=== PATIENT | female | born 1975 | race Hispanic/Latino ===

== ENCOUNTER 2022-04-28 19:21 | Emergency (ER) | payer OTHER ==
[~2022-04-28] VITALS: Ht 157.5 cm; Wt 138.3 kg
[2022-04-28 19:45] LABS: BASOPHILS % (AUTO) 0.1 % (0.0-5.0); EOSINOPHILS % (AUTO) 3.1 % (0.0-8.0); HEMATOCRIT 36.2 % (36-48); LYMPHOCYTES % (AUTO) 28.3 % (21.0-51.0); MEAN CORPUSCULAR HEMOGLOBIN 27.6 pg (27.0-33.0); MEAN CORPUSCULAR HGB CONC 33.1 g/dL (32.0-36.0); MEAN CORPUSCULAR VOLUME 83.2 fL (79-99); MONOCYTES % (AUTO) 6.6 % (3.0-13.0); NEUTROPHILS % (AUTO) 61.8 % (40.0-77.0); PLATELET COUNT (AUTO) 217 K/uL (130-400); RED BLOOD CELL COUNT(AUTO) 4.35 MIL/uL (4.00-5.50); RED CELL DISTRIBUTION WIDTH 12.7 % (11.0-15.5)
[2022-04-28 19:54] LABS: CREATININE 0.9 mg/dL (0.5-1.5); POTASSIUM 3.6 mmol/L (3.5-5.1)
[2022-04-28 19:59] LABS: APPEARANCE,URINE CLOUDY (CLEAR); BILIRUBIN,URINE NEGATIVE (NEGATIVE); COLOR,URINE LIGHT-ORANGE (YELLOW); GLUCOSE, URINE (UA) NEGATIVE (NEGATIVE); KETONES,URINE NEGATIVE (NEGATIVE); LEUKOCYTE ESTERASE ,URINE 500 Leu/uL (NEGATIVE); NITRATE,URINE NEGATIVE (NEGATIVE); OCCULT BLOOD,URINE LARGE (NEGATIVE); PH,URINE 5.5 (5.0-8.0); PROTEIN,URINE 30 mg/dL (NEGATIVE); UROBILINOGEN,URINE 0.2 mg/dL (0.2-1.0)
[2022-04-28 20:03] LABS: ALBUMIN 3.3 g/dL (3.5-5.0); TOTAL PROTEIN, SERUM 6.6 g/dL (6.0-8.3)
[2022-04-28 20:08] LABS: MUCUS,URINE RARE LPF (None Seen); RBC,URINE TNTC /HPF (0-1); SQUAMOUS EPITHELIAL CELL,UR FEW /HPF (0-2); WBC,URINE TNTC /HPF (0-1)
[2022-04-28] MEDS ORDERED: CEFTRIAXONE 1G VIAL IVP ONE (22:00)
[2022-04-28] MEDS ORDERED: KETOROLAC 15MG/ML VIAL (15MG/ML) IV STA (22:29)
[2022-04-28] MEDS ORDERED: CEFTRIAXONE 1G VIAL IVP STA (22:29)
[2022-04-28] MEDS ORDERED: CEPH500B PO (22:34)
[2022-04-28] MEDS ORDERED: CELE200 PO (22:34)
[2022-04-28 22:59] VITALS: BP 122/68
== END 2022-04-28 23:02 | disposition home or self-care (01) ==
LOC: EDH 19:21
DX: N39.0 Urinary tract infection, site not specified (principal); J40 Bronchitis, not specified as acute or chronic; R07.89 Other chest pain; Z20.822 Contact with and (suspected) exposure to COVID-19; Z90.89 Acquired absence of other organs; Z90.49 Acquired absence of other specified parts of digestive tract
CPT/HCPCS: 99285; 96374; 71045; 87635; 96375; 84484; 80053; 85025; 87088; 87804 ×2; 81001; 81025; 36415; 93005; C9803; J0696; J1885

== ENCOUNTER 2024-05-15 02:06 | Emergency (ER) | payer BC ==
[~2024-05-15] VITALS: Ht 160 cm; Wt 123.0 kg
[~2024-05-15 02:06] MED LIST: CELE200 PO; CEPH500B PO
--- NOTE | 2024-05-15 02:22 | ERN ---
General Chief Complaint: Insect Bite Stated Complaint: INSECT BITE Time Seen by MD: 02:14 Time Seen by Midlevel: 02:14 Source: patient History of Present Illness Initial Comments Patient is a 49-year-old female presenting to the emergency department with left arm swelling. Three days ago patient reports being stung by what appeared to be caterpillar. The next day she developed swelling to her hand and forearm. Today she presents to the emergency department with pain. Denies any fever, chills, or any other symptoms at this time. Allergies: Coded Allergies: No Known Allergies (Unverified Allergy, Unknown, 04/28/22) Home Meds Active Scripts Doxycycline Monohydrate (Doxycycline Monohydrate) 100 Mg Capsule, 1 CAP PO BID for 7 Days, #14 CAP 0 Refills Prov:GILBERTO DUGAN 05/15/24 Celecoxib (Celebrex 200Mg Cap) 200 Mg Cap, 200 MG PO BID for 10 Days, #20 CAP Prov:ROSELINE KRISHNA MD 04/28/22 Cephalexin Monohydrate (Keflex) 500 Mg Cap, 500 MG PO QID for 10 Days, #40 CAP Prov:ROSELINE KRISHNA MD 04/28/22 Past Medical History Past Medical History: No Pertinent History Past Surgical History: Appendectomy Surgical History Other: PT UNSURE IF APPENDECTOMY CHOLECYSTECTOMY Social History Social History: Negative, Lives with family ROS Dictation CONSTITUTIONAL: Negative except for HPI HEAD/FACE: Negative except for HPI EENT: Negative except for HPI RESPIRATORY: Negative except for HPI GASTROINTESTINAL/ABDOMINAL: Negative except for HPI GENITOURINARY: Negative except for HPI MUSCULOSKELETAL: Negative except for HPI INTEGUMENTARY: Negative except for HPI NEUROLOGICAL/PSYCH: Negative except for HPI HEMATOLOGIC/LYMPHATIC: Negative except for HPI All Systems Negative, Except as noted above. 13 point review of systems assessed and all negative except for above. Physical Exam Physical Exam Dictation PHYSICAL EXAM: GENERAL: alert,, awake oriented x 3 HEENT: EOMI, Sclera non icteric, moist mucosa NECK: Supple, no JVD, trachea midline LUNGS: Clear breath sounds bilaterally. No wheezes HEART: Regular rate and rhythm. Normal S1 and S2, without murmurs ABD: Abdomen soft, nontender. Bowel sounds present EXT: No clubbing or cyanosis, mild swelling to the left hand and wrist SKIN: Small insect bite to the left medial aspect of the upper arm, there was no erythema, induration, or drainable abscess NEURO: Alert and oriented to person, follows commands MDM MDM: Differential diagnosis: Insect bite, allergic reaction, There are no social concerns with this patient. Prescription drug management Prescriptions will include: Doxycycline Medical management and examination interpretation discussions were had by me with other qualified healthcare professionals as indicated for the patient's care. ED Course Orders Procedure Category Date Status Time Ceftriaxone 1g Vial PHA 05/15/24 Complete (Rocephine 1g Inj) 02:30 Tetanus,Diphtheria PHA 05/15/24 Complete Tox [Adult] (Diphther 02:30 Lidocaine Hcl 1% 20ml PHA 05/15/24 Complete Vial (Lidocaine Hc 02:35 Current Medications Medications (Trade) Dose Ordered Sig/Dimitris Route PRN Reason Start Time Stop Time Status Last Admin Dose Admin Ceftriaxone Sodium (ROCEphine 1G INJ) 1 gm ONCE ONCE IM 05/15/24 02:30 05/15/24 02:31 DC 05/15/24 02:39 Lidocaine HCl (Lidocaine HCl 1% 20ml Vial) 20 ml STK-MED ONCE .ROUTE 05/15/24 02:35 05/15/24 02:36 DC 05/15/24 02:40 Tetanus/ Diphtheria Toxoids Adsorbed (DiphthERIA-teTANUS TOXOID [ADULT]/ DECAVAC) 0.5 ml ONCE ONCE IM 05/15/24 02:30 05/15/24 02:31 DC 05/15/24 02:39 Vital Signs Date Time Temp Pulse Resp B/P (MAP) Pulse Ox O2 Delivery O2 Flow Rate FiO2 05/15/24 02:08 97.3 82 18 184/98 98 Room Air 0 DX & DISP Disposition: Discharge Departure Impression: Primary Impression: Insect bite Condition: Stable Scripts Doxycycline Monohydrate (Doxycycline Monohydrate) 100 Mg Capsule 1 CAP PO BID for 7 Days, #14 CAP 0 Refills Prov: GILBERTO DUGAN 05/15/24 Additional Instructions: I have given you a prescription for doxycycline to prevent a secondary infection following the insect bite that occurred three days ago. Follow up with your primary care doctor in the next 24-48 hours for repeat evaluation. Return to the ER for any new or worsening symptoms. Referrals: SELF,REFERRAL (PCP) Time of Disposition: 02:21 I have reviewed the case, and I agree with, Diagnosis and Plan I performed the substantive portion of the visit. I have reviewed and personally made and approve the management plan that is documented in the note by myself or the ANMOL. I acknowledge for responsibility for the patient's management plan. GILBERTO DUGAN May 15, 2024 02:22
[2024-05-15] MEDS ORDERED: DOXY100C61 PO (02:24)
[2024-05-15] MEDS: teTANUS/diphthERIA TOXOID [ADULT] 0.5 ML VIAL IM ONE (02:39)
[2024-05-15] MEDS: cefTRIAXone 1G VIAL IM ONE (02:39)
[2024-05-15] MEDS: LIDOCAINE HCL 1% 20 ML VIAL ONE (02:40)
[2024-05-15] MEDS ORDERED: KETO10TA2 PO (03:03)
[2024-05-15] MEDS: HYDROcodone/acetaMINOPHEN 10/325 MG TAB PO ONE (03:08)
[2024-05-15 03:10] VITALS: BP 130/74; PULSE 79; RESP 16; TEMP 98.2; O2SAT 97
== END 2024-05-15 03:39 | disposition home or self-care (01) ==
LOC: EDH 02:06
DX: S50.862A Insect bite (nonvenomous) of left forearm, initial encounter (principal); Z90.49 Acquired absence of other specified parts of digestive tract; W57.XXXA Bitten or stung by nonvenomous insect and other nonvenomous arthropods, initial encounter
CPT/HCPCS: 99284; 90714; 96372; 90471; J0696